=== PATIENT | female | born 1985 | race Caucasian/White ===

== ENCOUNTER 2019-03-20 18:30 | Outpatient (CLI) | payer OTHER ==
--- NOTE | 2019-03-20 18:30 | NUR ---
PT ARRIVED TO UNIT AMBULATORY WITH SISTER WITH COMPLAINTS OF POSSIBLE SROM AT 0330 THIS AM. PT TO ROOM, CHANGED INTO GOWN, ORIENTED TO ROOM. EFM X2 APPLIED, VS OBTAINED, AMNIOSWAB AND SVE PERFORMED.
[2019-03-20 19:00] VITALS: BP 127/86; PULSE 101; TEMP 97.8
[2019-03-20 19:19] VITALS: BP 127/86; PULSE 101; TEMP 97.8
[2019-03-20] MEDS ORDERED: LATUDA20 MG PO (19:25)
[2019-03-20] MEDS ORDERED: PRENATAL PO (19:26)
[2019-03-20] MEDS ORDERED: BUSPAR5 MG PO (19:26)
[2019-03-20] MEDS ORDERED: UNISOM25 MG PO (19:26)
--- NOTE | 2019-03-20 20:20 | NUR ---
2005- PT MAY DC HOME PER DR. PATEL. MONITORING DC'D AND PT CHANGING INTO STREET CLOTHES WHILE DISCHARGE PAPERWORK IS PREPARED. 2019- DISCHARGE INSTRUCTIONS REVIEWED WITH PT AND FAMILY, UNDERSTANDING VERBALIZED. PT LEFT THE UNIT AMBULATORY FOR HOME WITH FAMILY.
== END 2019-03-20 20:20 | disposition home or self-care (01) ==
LOC: LDRO 18:30 → LDR 18:57 → LDRO 20:20
DX: Z34.83 Encounter for supervision of other normal pregnancy, third trimester (principal); Z3A.37 37 weeks gestation of pregnancy
CPT/HCPCS: OP

== ENCOUNTER 2019-03-21 22:06 | Inpatient (IN) | payer OTHER ==
[~2019-03-21] VITALS: Ht 165.1 cm; Wt 72.7 kg
[~2019-03-21 22:06] MED LIST: BUSPAR5 MG PO; LATUDA20 MG PO; PRENATAL PO; UNISOM25 MG PO
[2019-03-21 22:36] VITALS: BP 130/89; PULSE 100; TEMP 98.7
[2019-03-21 22:45] VITALS: BP 130/89; PULSE 100; TEMP 98.7
[2019-03-21 23:15] VITALS: BP 131/76; PULSE 100
[2019-03-21 23:45] VITALS: BP 129/80; PULSE 85
[2019-03-22] VITALS (33 sets, daily range): BP systolic 80–146; BP diastolic 39–86; PULSE 68–104; TEMP 98.2–98.8
[2019-03-22 00:12] LABS: BASO # 0.1 (0.0-0.2); BASO % 0.3 % (0.0-2.0); EOS # 0.1 (0.0-0.7); EOS % 0.3 % (0-4.0); GRAN # 13.6 (1.4-6.5); GRAN % 79.6 % (42.2-75.2); HEMATOCRIT 35.5 % (37.0-47.0); HEMOGLOBIN 11.4 g/dl (12.5-16.0); LYMPH % 11.5 % (20.0-51.0); MEAN CELL VOLUME 81 fl (80.0-100.0); MEAN CORPUSCULAR HEMOGLOBIN 26 pg (27.0-31.0); MEAN CORPUSCULAR HGB CONC 32 g/dl (33.0-37.0); MEAN PLATELET VOLUME 9.4 fl (7.4-10.4); MONO # 1.2 (0.1-0.6); PLATELET COUNT 405 K/mm3 (130-400); RED BLOOD COUNT 4.37 M/mm3 (4.10-5.30); REDCELL DISTRIBUTION WIDTH-CV 14.6 % (11.5-14.5)
[2019-03-23 08:45] VITALS: BP 101/58; PULSE 73; TEMP 97.8
[2019-03-23] MEDS ORDERED: PERCOCET 325 MG1 TA2 PO (13:09)
[2019-03-23] MEDS ORDERED: MOTRIN 800800 MG/TAB PO (13:09)
[2019-03-23 16:30] VITALS: BP 102/60; PULSE 95; TEMP 97.9
[2019-03-23 20:15] VITALS: BP 127/82; PULSE 81; TEMP 97.8
[2019-03-24 07:00] VITALS: BP 95/55; PULSE 65; TEMP 98
[2019-03-24] MEDS ORDERED: BUSPAR5 MG PO (10:13)
[2019-03-24 12:09] VITALS: BP 109/64; PULSE 80; TEMP 98
== END 2019-03-24 12:40 | disposition home or self-care (01) | DRG 807 ==
LOC: LDRO 22:06 → LDR 22:06 → LDRO 23:35 → OB 23:37 → LDR 23:37 → OB 03-22 11:00
PROVIDERS: Obstetrics & Gynecology; ADMIT Obstetrics & Gynecology
PROC: 10E0XZZ Delivery of Products of Conception, External Approach (ICD-10-PCS; principal; 2019-03-22)
PROC: 0HQ9XZZ Repair Perineum Skin, External Approach (ICD-10-PCS; 2019-03-22)
DX: O99.824 Streptococcus B carrier state complicating childbirth (principal); Z37.0 Single live birth; O99.344 Other mental disorders complicating childbirth; F41.9 Anxiety disorder, unspecified; O70.0 First degree perineal laceration during delivery; O69.1XX0 Labor and delivery complicated by cord around neck, with compression, not applicable or unspecified; O62.2 Other uterine inertia; Z3A.37 37 weeks gestation of pregnancy
CPT/HCPCS: J2210; J2540; J2590; J7120